=== PATIENT | female | born 1960 | race Caucasian/White ===

== ENCOUNTER → 2016-11-13 | Outpatient (CLI) | payer OTHER ==
[2016-11-13 08:32] LABS: CH 30.7; CHCM 32.4; HCT 39.4 % (34.0-46.0); HDW 2.09; HGB 13.2 gm/dL (11.4-16.0); MCH 31.9 pg (25.0-35.0); MCHC 33.6 g/dL (31.0-37.0); MCV 95.1 fL (80.0-100.0); Mean Platelet Volume 7.6; RBC 4.14 m/uL (3.80-5.40); RDW 12.8 % (11.5-15.5); WBC 5.6 k/uL (3.8-10.6)
[2016-11-13 08:46] LABS: ALT 28 U/L (9-52); AST 23 U/L (14-36); Alkaline Phosphatase 41 U/L (38-126); Anion Gap 8 mmol/L; Blood Urea Nitrogen 19 mg/dL (7-17); Calcium 9.2 mg/dL (8.4-10.2); Carbon Dioxide 28 mmol/L (22-30); Chloride 105 mmol/L (98-107); Cholesterol 118 mg/dL (<200); Glucose 86 mg/dL (74-99); HDL Cholesterol 58 mg/dL (40-60); Non-African American GFR(MDRD) >60 (>60 ml/min/1.73 sqM); Potassium 3.9 mmol/L (3.5-5.1); Sodium 141 mmol/L (137-145); Total Bilirubin 0.7 mg/dL (0.2-1.3); Total Protein 6.7 g/dL (6.3-8.2); Triglycerides 56 mg/dL (<150)
--- NOTE | 2016-11-13 09:40 | MM ---
Reason for exam: follow-up at short interval from prior study. Last mammogram was performed 8 months ago. History: Benign left mammotome panel of the left breast, January 28, 2013. Physical Findings: Nurse did not find any significant physical abnormalities on exam. MG 3D Diag Mammo W/Cad RT CC and MLO view(s) were taken of the right breast. Prior study comparison: March 26, 2016, right breast MG work up mamm w CAD RT. March 20, 2016, bilateral MG 3d screening mammo w/cad. There are scattered fibroglandular densities. There are increasing microcalcifications in the upper outer right breast which are indeterminate for which a biopsy is recommended. These results were verbally communicated with the patient and result sheet given to the patient on 11/13/16. ASSESSMENT: Suspicious, BI-RAD 4 RECOMMENDATION: Stereotactic core biopsy of the right breast. [facility] to contact office for an appointment with Dr. Osuna. PRELIMINARY REPORT CALLED AND FAXED TO DR. OSUNA ON 11/13/16 AT 300/TP.
[2016-11-13 13:12] LABS: Hemoglobin A1C 5.2 % (4.2-6.1)
== END | disposition home or self-care (01) ==
LOC: RADMAMWWP 07:57
PROVIDERS: ATTEND Family Medicine
DX: R92.8 Other abnormal and inconclusive findings on diagnostic imaging of breast (principal); R42 Dizziness and giddiness
CPT/HCPCS: 84439; 80061; 80053; 83036; 84443; 85027; 36415; G0206; G0279

== ENCOUNTER → 2016-12-02 | Day surgery (SDC) | payer OTHER ==
[~2016-12-02] MED LIST: BACITRACIN OINT 1 EACH PACKET TOPICAL ONE; BUPIVACAINE (PF) 0.25% 30 ML VIAL ONE
--- NOTE | 2016-12-02 10:20 | PCN ---
DATE OF PROCEDURE: PREPROCEDURE DIAGNOSIS: Suspicious mammogram, calcification right breast. POSTOPERATIVE DIAGNOSIS: Defer to pathology. PROCEDURE: Mammotome biopsy with clip application. Patient presented with abnormal mammogram of her right breast, showed suspicious calcification new. Taken to [facility], placed on the mammotome table in the prone position. After coordinates were obtained by the radiologist, the skin was cleaned with Betadine, infiltrating the skin with Marcaine 0.25% plain. The mammotome needle was advanced according to coordinates. Multiple cores were taken. X-rays of the cores showed the calcification in question. Clip was placed for future identification of the area. X-ray showed the clip in good position. Patient tolerated the procedure well.
--- NOTE | 2016-12-02 11:18 | MM ---
EXAMINATION TYPE: MG stereo VAD BX RT DATE OF EXAM: 12/02/2016 10:35 AM COMPARISON: Mammogram November 13, 2016 and older studies CLINICAL HISTORY: Suspicious group of calcifications right breast. TECHNIQUE: Stereotactic guided core biopsy of right breast with clip placement and follow-up two-view mammogram. FINDINGS: The procedure of stereotactic guided core biopsy was explained to the patient. Benefits, alternatives, and risks were discussed. An informed consent was then obtained. The shortness pathway for biopsy was first chosen. Calcifications were not well seen and thus longer pathway from cranial approach was performed . I performed the localization, then surgeon, Dr. Osuna performed the remainder of the procedure. A vacuum assisted biopsy gun was used to obtain multiple core samples. The patient tolerated the procedure well without any immediate complication. The patient was kept in the radiology department for short stay after the procedure and then discharged home in stable condition. Targeted calcifications are identified in specimen mammogram. Post biopsy mammogram shows the clip to appear in satisfactory position relative to the targeted area of concern on the preprocedure images. No suspicious residual calcifications are identified. IMPRESSION: SUCCESSFUL, UNCOMPLICATED STEREOTACTIC GUIDED CORE BIOPSY OF AREA OF CONCERN IN THE RIGHT BREAST, FULL PATHOLOGY RESULTS TO FOLLOW. Low to intermediate index of suspicion noted at time of procedure. Pathology Results: Benign BREAST, RIGHT, CORE BIOPSY: FIBROCYSTIC CHANGES INCLUDING FIBROSIS, CYSTS, SCLEROSING ADENOSIS, COLUMNAR CELL HYPERPLASIA AND CALCIFICATIONS. Recommendation Follow up ultrasound of the right breast in 6 months. ASHLEYD
== END ==
LOC: RADMAMWWP 08:45
PROVIDERS: ATTEND Surgery
DX: N60.31 Fibrosclerosis of right breast (principal); N60.21 Fibroadenosis of right breast; N62 Hypertrophy of breast; R92.8 Other abnormal and inconclusive findings on diagnostic imaging of breast; N64.89 Other specified disorders of breast
CPT/HCPCS: 88305; 19081; A4648

== ENCOUNTER → 2017-05-25 | Outpatient (CLI) | payer OTHER ==
--- NOTE | 2017-05-25 08:11 | MM ---
Reason for exam: additional evaluation requested from prior study. Last mammogram was performed 6 months ago. History: Benign MG stereo VAD BX RT of the right breast, December 02, 2016. Benign left mammotome panel of the left breast, January 28, 2013. Physical Findings: Nurse did not find any significant physical abnormalities on exam. MG 3D Diag Mammo W/Cad NELY Bilateral CC and MLO view(s) were taken. Prior study comparison: November 13, 2016, right breast MG 3d diag mammo w/cad RT. March 26, 2016, right breast MG work up mamm w CAD RT. The breast tissue is heterogeneously dense. This may lower the sensitivity of mammography. Post excisional biopsy change upper outer quadrant right breast. These results were verbally communicated with the patient and result sheet given to the patient on 05/25/17. ASSESSMENT: Benign, BI-RAD 2 RECOMMENDATION: Routine screening mammogram of both breasts in 1 year.
--- NOTE | 2017-05-25 18:43 | BD ---
EXAMINATION TYPE: MG DEXA axial skeleton. DATE OF EXAM: 05/25/2017 COMPARISON: 03.20.2016 CLINICAL HISTORY: PT IS A 57 YR OLD FEMALE: ICD10 CODE: N95.1 POST MENOPAUSAL SYMPTOMS Height: 66.5 Weight: 191 FRAX RISK QUESTIONS: Alcohol (3 or more units per day): NO Family History (Parent hip fracture): NO Glucocorticoids (More than 3mos): NO (Ex: prednisone, prednisolone, methylprednisolone, dexamethasone, and hydrocortisone). History of Fracture in Adulthood: NO Secondary Osteoporosis: NO 1. Type 1 Diabetes: NO 2. Hyperthyroidism: NO 3. Menopause before 45: NA 4. Malnutrition: NO 5. Chronic liver disease: NO Rheumatoid Arthritis: NO Current Tobacco Use: NO RISK FACTORS HISTORY OF: History of Wrist Fracture: RT WRIST When: UNDER 52 YRS OLD Surgery to Spine LUMBAR LAMINECTOMY When: AT 51 AND 56 YRS OLD Family History of Osteoporosis: NONE KNOWN Active: YES Diet low in dairy products/other sources of calcium: NO Postmenopausal woman: LMP 2016 If Premenopausal, do you have irregular periods: BECOMMING IRREGULAR Hyperparathyroidism: NO Adrenal Insufficiency: NO MEDICATIONS: Additional Medications: BP MEDS, XANAX, Additional History: HYPERTENSION, ANXIETY EXAM MEASUREMENTS: Bone mineral densitometry was performed using the [employer] System. LUMBAR LAMINECTOMY X2.......LUMBAR SPINE NOT SCANNED Bone mineral density about the R hip (g/cm2): 1.275 Bone mineral density about the L hip (g/cm2): 1.326 T Score values are as follows: -----R Neck: 1.5 -----L Neck: 1.7 -----R Total: 2.1 -----L Total: 2.5 Bone mineral density has: Decreased -0.4% since study of: 03.20.2016 FRAX%'S: THERE IS A 4.3% CHANCE OF MAJOR OSTEOPOROTIC FX AND 0.0% CHANCE OF HIP FX.....PROBABILITY OF FX IN 10 YRS TIME IMPRESSION: Normal (Values between +1 and -1 indicate normal bone mass). Consider repeating this study in 5 year s or sooner if there is some new clinical indication. NOTE: T-SCORE=SD OF THE YOUNG ADULT MEAN.
== END | disposition home or self-care (01) ==
LOC: RADMAMWWP 06:53
PROVIDERS: ATTEND Family Medicine
DX: R92.8 Other abnormal and inconclusive findings on diagnostic imaging of breast (principal); N95.1 Menopausal and female climacteric states
CPT/HCPCS: 77080; G0204; G0279

== ENCOUNTER → 2018-05-26 | Outpatient (CLI) | payer OTHER ==
--- NOTE | 2018-05-26 11:03 | MM ---
Reason for exam: additional evaluation requested from prior study. Last mammogram was performed 1 year ago. History: Benign MG stereo VAD BX RT of the right breast, December 02, 2016. Benign left mammotome panel of the left breast, January 28, 2013. Physical Findings: Nurse did not find any significant physical abnormalities on exam. MG 3D Diag Mammo W/Cad NELY Bilateral CC and MLO view(s) were taken. Prior study comparison: May 25, 2017, bilateral MG 3d diag mammo w/cad NELY. November 13, 2016, right breast MG 3d diag mammo w/cad RT. Asymmetric breast tissue right medial to lateral breast, 3-4cm. These results were verbally communicated with the patient and result sheet given to the patient on 05/26/18. ASSESSMENT: Incomplete: need additional imaging evaluation, BI-RAD 0 RECOMMENDATION: Ultrasound of the right breast.
--- NOTE | 2018-05-26 11:05 | USB ---
Reason for exam: additional evaluation requested from abnormal screening. History: Benign MG stereo VAD BX RT of the right breast, December 02, 2016. Benign left mammotome panel of the left breast, January 28, 2013. US Breast Limited RT Right limited breast ultrasound including focal area of concern, retroareolar and axilla demonstrates three cystic lesions measuring 0.4 x 0.2 x 0.2cm at 9 o'clock, 0.8 x 0.8 x 0.5cm at 11 o'clock and 0.3 x 0.4 s 0.2cm at 1 o'clock. These results were verbally communicated with the patient and result sheet given to the patient on 05/26/18. ASSESSMENT: Benign, BI-RAD 2 RECOMMENDATION: Routine screening mammogram of both breasts in 1 year.
== END | disposition home or self-care (01) ==
LOC: RADMAMWWP 07:02
PROVIDERS: ATTEND Family Medicine
DX: R92.8 Other abnormal and inconclusive findings on diagnostic imaging of breast (principal)
CPT/HCPCS: 77062; 77066

== ENCOUNTER → 2018-11-18 | Outpatient (CLI) | payer OTHER ==
--- NOTE | 2018-11-18 11:05 | MR ---
EXAMINATION TYPE: MR brain and iac wo/w con DATE OF EXAM: 11/18/2018 COMPARISON: None HISTORY: Tinnitus, bilateral, vertigo TECHNIQUE: Multiplanar, multisequence images of the brain and brainstem is performed without and with IV contras t, utilizing 9 mL intravenous Gadavist . FINDINGS: Diffusion weighted images demonstrate no evidence of a recent infarct or other diffusion ab normality. There is no extra-axial fluid collection or significant white matter signal abnormality. The ventricular system and cisternal spaces are normal in size and appearance. The brain volume is age appropriate. Midline structures demonstrate normal morphology. The craniocervical junction appears within normal limits. Post contrast images demonstrate no abnormal enhancement. There is no evidence of cerebellopontine angle mass. No acoustic schwannoma. Areas of abnormal signal involving the basal ganglia are most likely related to prominent Virchow-Johnny in spaces less likely related to remote lacunar infarct. Changes of bilateral mastoiditis greater on the left and chronic sinusitis noted. IMPRESSION: 1. No evidence of acoustic schwannoma or cerebellopontine angle mass. 2. Chronic sinusitis and mastoiditis.
== END ==
LOC: RADMRIMAIN 09:04
PROVIDERS: ATTEND Family Medicine
DX: H93.13 Tinnitus, bilateral (principal)
CPT/HCPCS: 70553; A9585

== ENCOUNTER → 2018-12-22 | Outpatient (CLI) | payer OTHER ==
--- NOTE | 2018-12-24 13:40 | ENG ---
ELECTRONYSTAGMOGRAM REPORT VNG REPORT: VNG INDICATIONS: This 58-year-old female with dizziness ongoing for several years, lasting 10 to 20 seconds at a time 2 to 3 times a month. VNG FINDINGS: Saccades shows intact peak velocities, accuracies and latencies. Gaze with fixation shows no nystagmus in any of the directions of gaze including centrally with vision denied. Tracking shows no breakups. Optic nystagmus shows no significant asymmetry. Static position testing in all 6 positions with eyes open and then vision denied shows no nystagmus. Caro-Hallpike maneuvers are negative bilaterally. Caloric testing shows 12% unilateral right caloric weakness, which is within normal limits. IMPRESSION: Unremarkable VNG study. MMODL / IJN: [id number] /
== END ==
LOC: NEUROMAIN 06:39
PROVIDERS: ATTEND Otolaryngology
DX: R42 Dizziness and giddiness (principal)
CPT/HCPCS: 92537; 92540

== ENCOUNTER → 2019-01-06 | Outpatient (CLI) | payer OTHER ==
--- NOTE | 2019-01-06 08:25 | US ---
EXAMINATION TYPE: US thyroid st tissue head/neck DATE OF EXAM: 01/06/2019 COMPARISON: NONE CLINICAL HISTORY: E04.1 SINGLE THYROID GOITER. GLAND SIZE: Right Lobe: cm Overall Parenchyma: Left Lobe: cm Overall Parenchyma: Isthmus Thickness: cm NODULES RIGHT: # of nodules measured on right: 1. X x cm nodule at the pole with margins; . This nodule is and shows . Prior size: x x cm 2. X x cm nodule at the pole with margins; . This nodule is and shows . Prior size: x x cm 3. X x cm nodule at the pole with margins; . This nodule is and shows . Prior size: x x cm 4. X x cm nodule at the pole with margins; . This nodule is and shows . Prior size: x x cm LEFT: # of nodules measured on left: 1. X x cm nodule at the pole with margins; . This nodule is and shows . Prior size: x x cm 2. X x cm nodule at the pole with margins; . This nodule is and shows . Prior size: x x cm 3. X x cm nodule at the pole with margins; . This nodule is and shows . Prior size: x x cm 4. X x cm nodule at the pole with margins; . This nodule is and shows . Prior size: x x cm ISTHMUS: # of nodules measured in the isthmus: 1. X x cm nodule at the pole with margins; . This nodule is and shows . Prior size: x x cm Bilateral neck scanned, no evidence of lymphadenopathy. IMPRESSION: EXAMINATION TYPE: US thyroid st tissue head/neck DATE OF EXAM: 01/06/2019 COMPARISON: NONE CLINICAL HISTORY: E04.1 SINGLE THYROID GOITER. GLAND SIZE: Right Lobe: 4.8 x 1.6 x 2.0 cm Overall Parenchyma: homogenous Left Lobe: 4.8 x 1.4 x 2.1cm Overall Parenchyma: homogeneous Isthmus Thickness: 0.3 cm NODULES RIGHT: # of nodules measured on right: 2 1. 0.7 X 0.7 x 0.5 cm hypoechoic solid nodule at the upper pole with well-defined margins. This no dule is taller than wide and shows intranodular vascularity. No prior 2. 1.4 X 1.0 x 1.4 cm hypoechoic solid nodule at the lower pole with well-defined margins. This nod ule is wider than tall and shows . No prior LEFT: # of nodules measured on left: 2 1. 0.9 X 0.7 x 0.9 cm hypoechoic solid nodule at the upper pole with well-defined margins. This no dule is wider than tall and shows intranodular vascularity. No prior 2. 0.8 X 0.7 x 0.9 cm isoechoic solid nodule at the upper pole with well-defined margins. This nodu le is wider than tall and shows intranodular vascularity. No prior ISTHMUS: # of nodules measured in the isthmus: 0 Bilateral neck scanned, no evidence of lymphadenopathy. Multiple subcentimeter nodules noted bilaterally and 1 greater than 1 cm lymph node on the right. IMPRESSION: Multinodular goiter with multiple subcentimeter nodules and one nodule greater than a centimeter (fadia suring 1.4 cm). Surveillance is recommended.
== END | disposition home or self-care (01) ==
LOC: RADUSWWP 07:19
PROVIDERS: ATTEND Family Medicine
DX: E04.2 Nontoxic multinodular goiter (principal)
CPT/HCPCS: 76536

== ENCOUNTER → 2019-03-28 | Outpatient (CLI) | payer OTHER ==
--- NOTE | 2019-03-28 14:52 | MM ---
Reason for exam: clinical finding. Last mammogram was performed 10 months ago. History: Patient is postmenopausal. Benign MG stereo VAD BX RT of the right breast, December 02, 2016. Benign left mammotome panel of the left breast, January 28, 2013. Indicated problem(s): pain in both breasts. Physical Findings: Nurse did not find any significant physical abnormalities on exam. MG 3D Diag Mammo W/Cad NELY Bilateral CC and MLO view(s) were taken. Prior study comparison: May 26, 2018, bilateral MG 3d diag mammo w/cad NELY. May 25, 2017, bilateral MG 3d diag mammo w/cad NELY. There are scattered fibroglandular densities. Post surgical change on the right. Stable right upper outer quadrant anterior depth mass. Left biopsy marker. These results were verbally communicated with the patient and result sheet given to the patient on 03/28/19. ASSESSMENT: Incomplete: need additional imaging evaluation, BI-RAD 0 RECOMMENDATION: Ultrasound of both breasts. (area of pain)
--- NOTE | 2019-03-28 14:54 | USB ---
Reason for exam: additional evaluation requested from abnormal screening. History: Patient is postmenopausal. Benign MG stereo VAD BX RT of the right breast, December 02, 2016. Benign left mammotome panel of the left breast, January 28, 2013. US Breast Limited BILAT Right limited breast ultrasound including focal area of concern, retroareolar and axilla demonstrates a 0.7 x 0.6 x 0.4cm cystic cluster at 10 o'clock measured 0.8 x 0.5 x 0.8cm on 05/26/18 and a scar area at 1 o'clock. These results were verbally communicated with the patient and result sheet given to the patient on 03/28/19. ASSESSMENT: Benign, BI-RAD 2 RECOMMENDATION: Routine screening mammogram of both breasts in 1 year.
== END | disposition home or self-care (01) ==
LOC: RADMAMWWP 12:58
PROVIDERS: ATTEND Family Medicine
DX: N64.4 Mastodynia (principal)
CPT/HCPCS: 77062; 77066

== ENCOUNTER → 2019-07-22 | Outpatient (CLI) | payer OTHER ==
--- NOTE | 2019-07-22 08:23 | US ---
EXAMINATION TYPE: US thyroid st tissue head/neck DATE OF EXAM: 07/22/2019 COMPARISON: US 01/06/2019 CLINICAL HISTORY: E04.1 thyroid nodule. GLAND SIZE: Right Lobe: 4.5 x 2.0 x 1.7 cm Overall Parenchyma: homogenous Left Lobe: 4.7 x 1.5 x 1.8 cm Overall Parenchyma: homogeneous Isthmus Thickness: 0.3 cm NODULES RIGHT: # of nodules measured on right: 4 1. 0.7 X 0.4 x 0.5 cm hypoechoic solid nodule at the upper pole with well-defined margins; . This nodule is wider than tall and shows intranodular vascularity. Prior size: 0.4 cm 2. 0.8 X 0.7 x 0.7 cm hypoechoic solid nodule at the upper pole with well-defined margins; . This n odule is wider than tall and shows no intranodular vascularity. Prior size: 0.7 x 0.7 x 0.5 cm 3. 1.5 X 1.2 x 1.2 cm hypoechoic solid nodule at the mid pole with well-defined margins; . This nod ule is wider than tall and shows intranodular vascularity. Prior size: 1.4 x 1.0 x 1.4 cm 4. 0.7 X 0.4 x 0.5 cm hypoechoic solid nodule at the lower pole with well-defined margins; . This n odule is wider than tall and shows intranodular vascularity. Prior size: No previous LEFT: # of nodules measured on left: 1- previously measured as two nodules 1. 1.8 X 0.6 x 1.1 cm hypoechoic mixed nodule at the upper pole with well-defined margins; . This nodule is wider than tall and shows intranodular vascularity. Prior size: previously measured as two separate nodules. Combining previous measurements this appe ars stable. Bilateral neck scanned, no evidence of lymphadenopathy. IMPRESSION: Stable bilateral thyroid nodules
== END | disposition home or self-care (01) ==
LOC: RADUSWWP 06:51
PROVIDERS: ATTEND Otolaryngology
DX: E04.2 Nontoxic multinodular goiter (principal)
CPT/HCPCS: 76536

== ENCOUNTER → 2020-05-17 | Outpatient (CLI) | payer OTHER ==
--- NOTE | 2020-05-31 14:11 | MM ---
Reason for exam: additional evaluation requested from prior study. Last mammogram was performed 1 year and 2 months ago. History: Patient is postmenopausal. Benign MG stereo VAD BX RT of the right breast, December 02, 2016. Benign left mammotome panel of the left breast, January 28, 2013. Physical Findings: Nurse did not find any significant physical abnormalities on exam. MG 3D Diag Mammo W/Cad NELY Bilateral CC and MLO view(s) were taken. Prior study comparison: March 28, 2019, bilateral MG 3d diag mammo w/cad NELY. May 26, 2018, bilateral MG 3d diag mammo w/cad NELY. May 25, 2017, bilateral MG 3d diag mammo w/cad NELY. Finding: There is a 7 mm high density, indistinct round mass located 3 cm from the nipple in the upper outer quadrant of the right breast, present 2017. No significant changes in finding since May 26, 2018. These results were verbally communicated with the patient and result sheet given to the patient on 05/17/20. ASSESSMENT: Benign, BI-RAD 2 RECOMMENDATION: Routine screening mammogram of both breasts in 1 year.
== END | disposition home or self-care (01) ==
LOC: RADMAMWWP 13:41
PROVIDERS: ATTEND Family Medicine
DX: R92.8 Other abnormal and inconclusive findings on diagnostic imaging of breast (principal)
CPT/HCPCS: 77062; 77066

== ENCOUNTER → 2020-06-07 | Outpatient (CLI) | payer OTHER ==
--- NOTE | 2020-06-07 23:15 | US ---
EXAMINATION TYPE: US thyroid st tissue head/neck DATE OF EXAM: 06/07/2020 COMPARISON: US CLINICAL HISTORY: E04.1 thyroid nodule. Followup GLAND SIZE: Right Lobe: 4.5 x 2.0 x 1.7 cm Overall Parenchyma: homogenous Left Lobe: 4.8 x 1.7 x 1.4cm Overall Parenchyma: homogeneous Isthmus Thickness: 0.2 cm NODULES RIGHT: # of nodules measured on right: 4 largest of multiple nodules 1. 0.5 x 0.5 x 0.4 cm hypoechoic mixed nodule at the upper pole with well-defined margins. This nod ule is wider than tall and shows intranodular vascularity. Prior size: 0.7 x 0.5 x 0.4 cm 2. 0.8 X 0.6 x 0.6 cm hypoechoic mixed nodule at the upper mid pole with well-defined margins; inter rupted peripheral calcification. This nodule is wide as is tall and shows no intranodular vascularit y. Prior size: 0.8 x 0.7 x 0.7 cm 3. 1.1 X 1.2 x 1.0 cm hypoechoic mixed nodule at the mid pole with well-defined margins; present wit h microcalcifications. This nodule is wider than tall and shows no intranodular vascularity. Prior size: 1.5 x 1.2 x 1.0 cm 4. 0.6 X 0.5 x 0.3 cm hypoechoic mixed nodule at the lateral pole with well-defined margins.. This nodule is wider than tall and shows no intranodular vascularity. Prior size: 0.7 x 0.5 x 0.4 cm LEFT: # of nodules measured on left: 3 largest of multiple 1. 1.9 X 1.1 x 0.6 cm hypoechoic mixed nodule at the upper pole with well-defined margins; present with microcalcification. This nodule is wider than tall and shows intranodular vascularity. Prior size: 0.7 x 1.1 x 0.6 cm 2. 0.6 X 0.5 x 0.5 cm isoechoic mixed nodule at the medial mid pole with well-defined margins. This nodule is wide as is tall and shows intranodular vascularity. (no prior recorded) 3. 0.5 X 0.5 x 0.4 cm hypoechoic mixed nodule at the lower pole with well-defined margins. This nod ule is wider than tall and shows no intranodular vascularity. (no prior) ISTHMUS: # of nodules measured in the isthmus: 0 Bilateral neck scanned: no evidence of lymphadenopathy. IMPRESSION: 1. There is an enlarging left upper lobe thyroid nodule. Additional nodules greater in less than 1 cm are present bilaterally.
== END | disposition home or self-care (01) ==
LOC: RADUSWWP 16:21
PROVIDERS: ATTEND Otolaryngology
DX: E04.2 Nontoxic multinodular goiter (principal)
CPT/HCPCS: 76536

== ENCOUNTER → 2020-12-28 | Outpatient (CLI) | payer OTHER ==
[2020-12-28 21:12] LABS: African American GFR (CKD) 94.2 (60.0-200.0); Albumin 4.1 g/dL (3.80-4.90); Albumin/Globulin Ratio 1.86 (1.60-3.17); Anion Gap 7.5 mmol/L (4.00-12.00); Calcium 9.4 mg/dL (8.7-10.3); Carbon Dioxide 27.5 mmol/L (21.6-31.8); Chol/HDL Ratio 2.31; Globulin 2.2 g/dL (1.6-3.3); LDL Cholesterol,Calculated 67.6 mg/dL (0.0-131.0); Non-African American GFR(CKD) 81.3 (60.0-200.0); Potassium 4.5 mmol/L (3.5-5.5); Total Bilirubin 0.6 mg/dL (0.2-1.2); Total Protein 6.3 g/dL (6.2-8.2); VLDL Calculation 13.4 mg/dL (5.00-40.00)
== END | disposition home or self-care (01) ==
LOC: LABWHC1 10:13
PROVIDERS: ATTEND Family Medicine
DX: Z00.00 Encounter for general adult medical examination without abnormal findings (principal); I10 Essential (primary) hypertension
CPT/HCPCS: 36415; 80053; 80061

== ENCOUNTER → 2021-06-14 | Outpatient (CLI) | payer OTHER ==
--- NOTE | 2021-06-15 15:26 | US ---
EXAMINATION TYPE: US kidneys/renal and bladder DATE OF EXAM: 06/14/2021 COMPARISON: NONE CLINICAL HISTORY: R31.9 Hematuria. UTI, HTN EXAM MEASUREMENTS: Right Kidney: 11.2 x 4.4 x 5.2 cm Left Kidney: 11.0 x 4.8 x 5.6 cm Right Kidney: No hydronephrosis or masses seen Left Kidney: No hydronephrosis or masses seen Bladder: wnl Bilateral Jets seen: Yes IMPRESSION: 1. Normal renal ultrasound
== END | disposition home or self-care (01) ==
LOC: RADUSWWP 15:57
PROVIDERS: ATTEND Family Medicine
DX: N39.0 Urinary tract infection, site not specified (principal); I10 Essential (primary) hypertension
CPT/HCPCS: 76770

== ENCOUNTER → 2021-07-24 | Outpatient (CLI) | payer OTHER ==
--- NOTE | 2021-07-25 08:06 | US ---
EXAMINATION TYPE: US thyroid st tissue head/neck DATE OF EXAM: 07/24/2021 COMPARISON: 06/07/2020 CLINICAL HISTORY: 61-year-old female E04.1 THYROID NODULE. TECHNIQUE: Multiple sonographic images of the thyroid gland are obtained. FINDINGS: GLAND SIZE: Right Lobe: 4.4 x 2.0 x 2.2 cm Overall Parenchyma: homogenous Left Lobe: 4.5 x 1.5 x 1.8 cm Overall Parenchyma: homogeneous Isthmus Thickness: 0.3 cm NODULES RIGHT: # of nodules measured on right: 1 1. 1.3 X 1.1 x 1.1 cm, lower mid, solid or almost completely solid, hypoechoic TR 4 nodule, which i s wider than tall, with smooth margins, without echogenic foci. Prior size: 1.1 x 1.2 x 1.0 cm LEFT: # of nodules measured on left: 1 1. 0.9 X 0.6 x 0.8 cm, upper lateral, solid or almost completely solid, hypoechoic TR 4 nodule, whi ch is wider than tall, with smooth margins, without echogenic foci. Prior size: Seems to have measured up to 1 cm, previously, when reviewing the images (but previou sly not measured). 2. Left upper pole 8 mm colloid cyst stable. ISTHMUS: # of nodules measured in the isthmus: 0 Additional smaller subcentimeter nodules are noted. Bilateral neck scanned, no evidence of lymphadenopathy. IMPRESSION: A dominate TR4 solid nodule on either side. This is stable to minimally larger on the right at 1.3 x 1.1 cm (versus 1.2 x 1.1 cm, previously). Continue to follow and FNA if it reaches 1.5 cm. The 9 mm n odule at the left upper pole appears grossly stable.
== END | disposition home or self-care (01) ==
LOC: RADUSWWP 16:03
PROVIDERS: ATTEND Family Medicine
DX: E04.2 Nontoxic multinodular goiter (principal)
CPT/HCPCS: 76536

== ENCOUNTER → 2022-11-25 | Outpatient (CLI) | payer OTHER ==
--- NOTE | 2022-11-25 08:31 | XR ---
EXAMINATION TYPE: XR foot complete LT DATE OF EXAM: 11/25/2022 COMPARISON: NONE HISTORY: Pain TECHNIQUE: Three views are submitted. FINDINGS: The osseous structures are intact. There is no acute fracture or dislocation. There is moderate to severe hypertrophic arthropathy of the first tarsometatarsal joint and moderate changes involving th e first MTP joint. Large calcaneal plantar spur noted. IMPRESSION: 1. 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 2. Moderate first MTP joint hypertrophic arthropathy
== END | disposition home or self-care (01) ==
LOC: RADXRMAIN 07:47
PROVIDERS: ATTEND Family Medicine
DX: M19.072 Primary osteoarthritis, left ankle and foot (principal)

== ENCOUNTER → 2022-12-30 | Outpatient (CLI) | payer OTHER ==
--- NOTE | 2022-12-30 16:05 | US ---
EXAMINATION TYPE: US thyroid st tissue head/neck DATE OF EXAM: 12/30/2022 COMPARISON: 07/24/2021 CLINICAL INDICATION: Female, 62 years old with history of E04.1 SINGLE THYROID NODULE; Thyroid nodule GLAND SIZE: Right Lobe: 4.8 x 1.9 x 2.3 cm Overall Parenchyma: homogenous Left Lobe: 5.0 x 1.6 x 2.1 cm Overall Parenchyma: homogeneous Isthmus Thickness: 0.3 cm NODULES RIGHT: # of nodules measured on right: multiple measured largest. 1. 1.4 X 1.2 x .9 cm, lower lateral, Prior size: 1.3 x 1.1 x 1.1 cm TIRADS Score: 4 TIRADS Category 4: Moderately Suspicious Composition: Solid or almost completely solid (2 points). Echogenicity: Hypoechoic (2 points). Shape: Wider than tall (0 points). Margin: Smooth (0 points). Echogenic foci: None or large comet-tail artifacts (0 points) Recommendation: If >1.5cm: FNA; If >1cm: Follow up at 1,2, 3,5 years LEFT: # of nodules measured on left: 2 1. 1.0 X 0.6 x 1.1 cm, upper, Prior size: 0.9 x 0.6 x 0.8 cm TIRADS Score: 3 TIRADS Category 3: Mildly Suspicious Composition: Solid or almost completely solid (2 points). Echogenicity: Hyperechoic or isoechoic (1 point). Shape: Wider than tall (0 points). Margin: Smooth (0 points). Echogenic foci: None or large comet-tail artifacts (0 points) Recommendation: If >2.5cm: FNA; If >1.5cm: Follow up at 1,3,5 years 2. 0.9 X 0.5 x 0.7 cm, upper , Prior size: No previous. TIRADS Score: 4 TIRADS Category 4: Moderately Suspicious Composition: Solid or almost completely solid (2 points). Echogenicity: Hypoechoic (2 points). Shape: Wider than tall (0 points). Margin: Smooth (0 points). Echogenic foci: None or large comet-tail artifacts (0 points) Recommendation: If >1.5cm: FNA; If >1cm: Follow up at 1,2, 3,5 years ISTHMUS: # of nodules measured in the isthmus: 0 Bilateral neck scanned, no evidence of lymphadenopathy. IMPRESSION: Bilateral thyroid nodules with recommendations as described above. At least one on the right medially criteria for follow-up there are additional smaller right-sided thyroid nodules they do not meet cri teria by TI-RADS for follow-up. Left thyroid nodules also present that do not meet criteria for follo w-up.
== END | disposition home or self-care (01) ==
LOC: RADUSWWP 14:56
PROVIDERS: ATTEND Otolaryngology
DX: E04.2 Nontoxic multinodular goiter (principal)
CPT/HCPCS: 76536

== ENCOUNTER 2023-01-23 12:52 | Day surgery (SDC) | payer OTHER ==
--- NOTE | 2023-01-23 13:53 | US ---
ULTRASOUND GUIDED FNA THYROID BIOPSY: CLINICAL HISTORY: Right thyroid nodule FINDINGS: The procedure was explained to the patient. The risks, complications, benefits and alternatives were discussed and any questions were answered. Informed consent was obtained. Patient was placed supin e on the ultrasound table and prepped and draped in the usual sterile fashion. Utilizing a 25 gauge needle, five passes were made into the requested right thyroid nodule. Patient was stable throughout the procedure. Pathology is pending. All elements of maximal barrier technique were utilized. IMPRESSION: 1. Successful ultrasound guided FNA thyroid biopsy.
[2023-01-23 13:58] VITALS: RESP 16; TEMP 98
[2023-01-23 14:42] VITALS: BP 127/74; PULSE 80
== END 2023-01-23 14:10 | disposition home or self-care (01) ==
LOC: RADPROMAIN 12:52
PROVIDERS: ATTEND Family Medicine
DX: E04.1 Nontoxic single thyroid nodule (principal)
CPT/HCPCS: 10005; 88173; 88305

== ENCOUNTER → 2023-12-09 | Outpatient (CLI) | payer OTHER ==
--- NOTE | 2023-12-09 11:14 | XR ---
EXAMINATION TYPE: XR knee limited bilateral DATE OF EXAM: 12/09/2023 COMPARISON: NONE HISTORY: Pain TECHNIQUE: Two views of each knee are submitted. FINDINGS: Mild narrowing of the medial lateral compartment the knee joint and moderate narrowing of patellofemo ral compartment knee joint bilaterally. There is marginal spurring and no erosive changes. Small supr apatellar bursal fluid collection bilaterally. Osseous structures are intact. No acute fracture seen . Enthesophytes involving the upper margin of the patella on the left. IMPRESSION: 1. Mild to moderate osteoarthritis bilaterally.
[2023-12-09 15:33] LABS: ALT 16 U/L (8-44); AST 19 U/L (13-35); Albumin 4.2 g/dL (3.8-4.9); Albumin/Globulin Ratio 1.83 Ratio (1.60-3.17); Alkaline Phosphatase 57 U/L (41-126); BUN/Creat Ratio 27.71 Ratio (12.00-20.00); Blood Urea Nitrogen 19.4 mg/dL (9.0-27.0); Calcium 9.7 mg/dL (8.7-10.3); Carbon Dioxide 28.5 mmol/L (21.6-31.8); Chloride 104 mmol/L (96-109); Chol/HDL Ratio 3.38 Ratio; Globulin 2.3 g/dL (1.6-3.3); Glucose 95 mg/dL (70-110); LDL Cholesterol,Calculated 91.8 mg/dL (0.0-131.0); Potassium 4.6 mmol/L (3.5-5.5); Sodium 141 mmol/L (135-145); Total Bilirubin 0.4 mg/dL (0.3-1.2); Total Protein 6.5 g/dL (6.2-8.2)
[2023-12-09 16:22] LABS: Basophils # (A) 0.03 X 10*3/uL (0.00-0.10); Basophils % (A) 0.6 %; Eosinophils # (A) 0.14 X 10*3/uL (0.04-0.35); Eosinophils % (A) 2.6 %; HCT 43.2 % (37.2-46.3); HGB 13.8 g/dL (12.0-15.0); Lymphocytes # (A) 1.97 X 10*3/uL (0.90-5.00); Lymphocytes % (A) 36.3 %; MCH 30.1 pg (27.0-32.0); MCHC 31.9 g/dL (32.0-37.0); MCV 94.1 FL (80.0-97.0); Mean Platelet Volume 11.4 FL (9.5-12.2); Monocytes # (A) 0.42 X 10*3/uL (0.20-1.00); Monocytes % (A) 7.7 %; NRBC Per 100 WBC 0 X 10*3/uL (0.00-0.01); Neutrophils # (A) 2.85 X 10*3/uL (1.80-7.70); Neutrophils % (A) 52.6 %; Platelet Count 276 X 10*3/uL (140-440); RBC 4.59 X 10*6/uL (4.10-5.20); RDW 13.1 % (11.5-14.5); WBC 5.42 X 10*3/uL (4.50-10.00)
== END | disposition home or self-care (01) ==
LOC: LABWHC1 08:55
PROVIDERS: ATTEND Family Medicine
DX: M17.0 Bilateral primary osteoarthritis of knee (principal)
CPT/HCPCS: 36415; 80053; 80061; 84443; 85025

== ENCOUNTER → 2024-01-15 | Outpatient (CLI) | payer OTHER ==
--- NOTE | 2024-01-15 10:53 | MM ---
Reason for Exam: Additional evaluation requested from prior study. Last mammogram was performed 1 year(s) and 4 month(s) ago. Patient History: Menarche at age 14. First Full-Term at age 30. Postmenopausal. Patient has history of breast feeding. 12/02/2016, Benign Core Biopsy on the right side. 01/28/2013, Benign Core Biopsy on the left side. Risk Values: Kaylan 5 year model risk: 2.5%. NCI Lifetime model risk: 11.6%. Prior Study Comparison: 11/13/2016 Right Diagnostic Mammogram, [facility]. 05/25/2017 Bilateral Diagnostic Mammogram, [facility]. 05/26/2018 Bilateral Diagnostic Mammogram, [facility]. 03/28/2019 Bilateral Diagnostic Mammogram, [facility]. 05/17/2020 Bilateral Diagnostic Mammogram, [facility]. 05/06/2021 Bilateral MG 3D diag mammo w/cad NELY - 2, [facility]. 05/07/2021 Right MG diagnostic mammo RT w CAD - 2, [facility]. 09/12/2022 Bilateral MG 3D diag mammo w/cad NELY, [facility]. Tissue Density: The breasts are heterogeneously dense, which may obscure small masses. Findings: Analyzed By CAD. No evidence for mass or distortion. Overall Assessment: Benign, BI-RAD 2 Management: Screening Mammogram of both breasts in 1 year. . Results were given to the patient verbally at the time of exam. Patient should continue monthly self-breast exams. A clinical breast exam by your physician is recommended on an annual basis. This exam should not preclude additional follow-up of suspicious palpable abnormalities. Note on Kaylan scores and lifetime risk: 1. A Kaylan score greater than 3% is considered moderate risk. If this is the case, consider specialist referral to assess eligibility for a risk reducing agent. 2. If overall lifetime risk for the development of breast cancer is 20% or higher, the patient may qualify for future screening with alternating mammogram and breast MRI. Electronically signed and approved by: Rip Lim M.D. Radiologis
== END | disposition home or self-care (01) ==
LOC: RADMAMWWP 07:57
PROVIDERS: ATTEND Family Medicine
DX: R92.333 Mammographic heterogeneous density, bilateral breasts (principal); R92.8 Other abnormal and inconclusive findings on diagnostic imaging of breast; Z78.0 Asymptomatic menopausal state
CPT/HCPCS: 77062; 77066

== ENCOUNTER → 2024-02-16 | Outpatient (CLI) | payer OTHER ==
--- NOTE | 2024-02-16 21:19 | US ---
EXAMINATION TYPE: US thyroid st tissue head/neck DATE OF EXAM: 02/16/2024 COMPARISON: US CLINICAL INDICATION: Female, 63 years old with history of E04.2 US THYR; F/U GLAND SIZE: Right Lobe: 4.5 x 1.8 x 2.1 cm Overall Parenchyma: homogeneous Left Lobe: 4.5 x 1.5 x 1.8 cm Overall Parenchyma: homogeneous Isthmus Thickness: 0.3 cm NODULES RIGHT: # of nodules measured on right: 3 1. 1.2 X 1.1 x 1.3 cm, lower, solid or almost completely solid, isoechoic nodule, which is wider th an tall, with smooth margins, with echogenic foci. TR 5 Prior size: 1.4 x 1.2 x 0.9 cm 2. 0.8 X 0.8 x 0.7 cm, mid, solid or almost completely solid, hypoechoic nodule, which is wider johanna n tall, with smooth margins, without echogenic foci. Prior size: 0.7 cm 3. 0.7 X 0.6 x 0.7 cm, mid, solid or almost completely solid, nodule, which is wider than tall, wit h smooth margins, without echogenic foci. Prior size: 0.7 cm LEFT: # of nodules measured on left: 2 1. 1.0 X 0.6 x 0.9 cm, upper, solid or almost completely solid, hypoechoic nodule, which is wider t manuel tall, with smooth margins, without echogenic foci. Prior size: 1.0 x 0.6 x 1.1 cm 2. 0.7 X 0.6 x 0.7 cm, upper, solid or almost completely solid, isoechoic nodule, which is wider t manuel tall, with smooth margins, without echogenic foci. Prior size: 0.8 x 0.5 x 0.7 cm ISTHMUS: # of nodules measured in the isthmus: 0 Bilateral neck scanned, no evidence of lymphadenopathy. Probable stable nodules bilaterally. IMPRESSION: 1. The most suspicious nodule has been previously biopsied. Biopsy results are unavailable at this ti me, review biopsy results is recommended 2017 ACR TI-RADS LEVEL: TI-RADS 5 - Highly Suspicious: Follow if > 0.5 cm, FNA if > 1.0 cm *Highest TI-RADS level nodule reported
== END | disposition home or self-care (01) ==
LOC: RADUSWWP 15:04
PROVIDERS: ATTEND Otolaryngology
DX: E04.2 Nontoxic multinodular goiter (principal)
CPT/HCPCS: 76536